=== PATIENT | male | born 1955 | race Caucasian/White ===

== ENCOUNTER 2016-11-12 13:18 | Observation (INO) ==
--- NOTE | 2016-11-12 13:34 | Emergency Department Note ---
Disposition Clinical Impression: Altered mental status Qualifiers: Altered mental status type: unspecified Qualified Code(s): R41.82 - Altered mental status, unspecified Disposition: Admitted As Inpatient Condition: Good Referrals: NONE,PCP [Non-Partnered Physician] - Forms: ED Satisfaction Letter Time of Disposition: 15:08 Altered Mental Status HPI - General Chief Complaint: ED Altered Mental Status Stated Complaint: AMS Time Seen by Provider: 11/12/16 13:26 Source: patient, EMS Mode of arrival: EMS Limitations: no limitations Nursing Notes Reviewed: Yes Vital Signs Reviewed: Yes - History of Present Illness HPI Narrative: 61-year-old male who was at home getting ready to go on vacation and called his confused and trouble remembering recent events. Patient's states that everything looked intact at home. The patient thinks he may have blacked out. Please having trouble with short-term memory when asked questions. 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 Constitutional: Denies: fever, chills, weakness, weight change Eyes: Denies: eye pain, eye discharge, vision change ENT ED: Denies: ear pain, throat pain, dental pain, hearing loss, epistaxis, congestion, dysphagia Cardiovascular: Denies: chest pain, palpitations, dyspnea on exertion, edema, syncope Respiratory: Denies: cough, dyspnea, wheezes, hemoptysis, stridor Gastrointestinal: Denies: abdominal pain, nausea, vomiting, diarrhea, constipation, hematemesis, melena, hematochezia Genitourinary: Denies: urgency, dysuria, frequency, hematuria Musculoskeletal: Denies: back pain, neck pain, arthralgia, myalgia Integumentary: Denies: rash, abrasion, lesions Neurological: Reports: other. Denies: headache, weakness, numbness, paresthesias, confusion, abnormal gait, vertigo Psychiatric: Denies: anxiety, depression, suicidal thoughts, homicidal thoughts , auditory hallucinations, visual hallucinations Endocrine: Denies: fatigue Hematological/Lymphatic: Denies: easy bleeding, easy bruising Allergic/Immunologic: Denies: facial swelling, urticaria Past Medical History - Past Medical History Medical history: Reports: cancer, hypertension Psychiatric history: Reports: no psych history - Social History Smoking Status: Never smoker Smokeless Tobacco Status: No Alcohol use: Reports: none Drug use: Reports: none Physical Exam - General Limitations: no limitations General appearance: alert, in no apparent distress - Head Head exam: atraumatic, normocephalic, normal inspection - Eye Eye exam: Present: normal appearance, PERRL, EOMI - ENT ENT exam: normal exam, normal oropharynx, mucous membranes moist - Neck Neck exam: Present: normal inspection, full ROM, trachea midline - Chest Chest inspection: Present: normal inspection, symmetric chest wall rise - Respiratory Respiratory exam: Present: normal lung sounds bilaterally - Cardiovascular Cardiovascular exam: Present: regular rate, normal rhythm, normal heart sounds - Abdominal Exam Abdominal exam: Present: soft, Non-Tender. Absent: tenderness, distention, guarding, rebound, rigidity - Extremities Exam Extremities exam: Present: normal inspection, full ROM. Absent: tenderness, pedal edema - Expanded Lower Extremity Exam Neurovascular/Tendon exam: Absent: motor deficit, sensory deficit, tendon deficit Gait: not tested/not observed - Back Exam Back exam: Present: normal inspection, full ROM. Absent: tenderness - Neurological Exam Neurological exam: Present: alert, oriented X3. Absent: motor sensory deficit - Psychiatric Psychiatric exam: Present: normal affect, normal mood - Skin Skin exam: Present: warm, dry, intact, normal color Course - Reevaluation(s) Reevaluation #1: 51-year-old who developed acute confusion and short-term memory loss. NIH stroke scale was [address] is negative. Differential diagnosis includes transient global amnesia, seizure. Time: 15:01 - Consultations Consultation #1: Discussed with Dr. Espitia, admit Time: 15:00 Consultation #2: Discussed with Dr.Li landis see and consult Time: 15:06 Vital Signs Temperature 97.1 F L 11/12/16 13:20 Pulse Rate 58 11/12/16 13:20 Respiratory Rate 16 11/12/16 13:20 Blood Pressure 144/107 11/12/16 13:20 O2 Sat by Pulse Oximetry 96 11/12/16 13:20 Temperature 97.1 F L 11/12/16 13:20 Pulse Rate 58 11/12/16 14:39 Respiratory Rate 16 11/12/16 14:39 Blood Pressure 149/98 11/12/16 14:39 O2 Sat by Pulse Oximetry 98 11/12/16 14:39 Oxygen Delivery Oxygen Delivery Room Air Altered Mental Status - Differential Diagnosis Likely: altered mental status - Lab Data Lab results reviewed: Yes I reviewed the patient's lab results. Result diagrams: 11/12/16 13:40 11/12/16 13:40 Lab Results 11/12/16 11/12/16 11/12/16 Range/Units 13:40 13:40 13:40 WBC 7.5 (4.3-11.1) K/mcL RBC 4.26 (4.19-5.50) M/mcL Hgb 12.9 (12.9-16.9) g/dL Hct 37.3 L (37.5-50.1) % MCV 87.6 (83.0-100.0) fL MCH 30.3 (28.0-33.3) pg MCHC 34.6 (31.6-35.5) g/dL RDW 12.4 (11.5-14.5) % Plt Count 169 (140-400) K/mcL MPV 11.0 (9.4-12.4) fL Immature Gran % 0.3 (0-4) % Seg Neutrophils % 81.3 % Lymphocytes % 10.6 % Monocytes % 6.4 % Eosinophils % 1.1 % Basophils % 0.3 % Neutrophils # 6.1 (1.6-8.9) K/mcL Lymphocytes # 0.8 (0.6-4.6) K/mcL Monocytes # 0.5 (0.0-1.3) K/mcL Eosinophils # 0.1 (0.0-0.6) K/mcL Basophils # 0.0 (0.0-0.2) K/mcL Immature Plt Fraction 7.2 H (1.1-6.1) % PT 10.8 (9.4-12.1) Seconds INR 1.0 APTT 27.7 (26.0-36.0) Seconds Sodium 133 L (136-145) mEq/L Potassium 3.9 (3.5-4.5) mEq/L Chloride 98 (98-109) mEq/L Carbon Dioxide 29 (19-29) mEq/L BUN 28 H (8-26) mg/dL Creatinine 0.96 (0.72-1.25) mg/dL Est GFR ( Amer) > 60 (> 60) Est GFR (Non-Af Amer) > 60 (> 60) BUN/Creatinine Ratio 29 H (6-26) Glucose 110 H (70-99) mg/dL Calculated Osmolality 282 (280-300) Calcium 9.8 (8.6-10.8) mg/dL Total Bilirubin 0.7 (0.2-1.2) mg/dL Direct Bilirubin 0.3 (0.0-0.5) mg/dL Indirect Bilirubin 0.4 (0.0-1.2) mg/dL AST 20 (5-34) Units/L ALT 13 (0-55) Units/L Alkaline Phosphatase 52 (38-126) Units/L Troponin I (0-0.03) ng/mL Serum Total Protein 6.0 (6.0-8.3) g/dL Albumin 3.7 (3.5-5.0) g/dL Globulin 2.3 L (2.4-3.5) g/dL Albumin/Globulin Ratio 1.6 (1.1-2.2) Urine Color (Yellow) Urine Clarity (Clear) Urine pH (5.0-8.0) pH Units Ur Specific [place] (1.010-1.025) Urine Protein (Neg-Trace) mg/dL Urine Glucose (UA) (Normal) mg/dL Urine Ketones (Negative) mg/dL Urine Blood (Negative) Urine Nitrite (Negative) Urine Bilirubin (Negative) Urine Urobilinogen (Normal) mg/dL Ur Leukocyte Esterase (Negative) Ur Culture Indicated? (NO) Urine Opiates Screen (Lfqlge=766) ng/mL Ur Barbiturates Screen (Xjfyfa=344) ng/mL Ur Phencyclidine Scrn (Cutoff=25) ng/mL Ur Amphetamines Screen (Hwyjlf=0880) ng/mL U Benzodiazepines Scrn (Dspdzg=397) ng/mL Urine Cocaine Screen (Cutoff= 300) ng/mL U Marijuana (THC) Screen (Cutoff = 50) ng/mL Ethyl Alcohol < 10 (0-10) mg/dL 11/12/16 11/12/16 11/12/16 Range/Units 13:40 13:56 13:59 WBC (4.3-11.1) K/mcL RBC (4.19-5.50) M/mcL Hgb (12.9-16.9) g/dL Hct (37.5-50.1) % MCV (83.0-100.0) fL MCH (28.0-33.3) pg MCHC (31.6-35.5) g/dL RDW (11.5-14.5) % Plt Count (140-400) K/mcL MPV (9.4-12.4) fL Immature Gran % (0-4) % Seg Neutrophils % % Lymphocytes % % Monocytes % % Eosinophils % % Basophils % % Neutrophils # (1.6-8.9) K/mcL Lymphocytes # (0.6-4.6) K/mcL Monocytes # (0.0-1.3) K/mcL Eosinophils # (0.0-0.6) K/mcL Basophils # (0.0-0.2) K/mcL Immature Plt Fraction (1.1-6.1) % PT (9.4-12.1) Seconds INR APTT (26.0-36.0) Seconds Sodium (136-145) mEq/L Potassium (3.5-4.5) mEq/L Chloride (98-109) mEq/L Carbon Dioxide (19-29) mEq/L BUN (8-26) mg/dL Creatinine (0.72-1.25) mg/dL Est GFR ( Amer) (> 60) Est GFR (Non-Af Amer) (> 60) BUN/Creatinine Ratio (6-26) Glucose (70-99) mg/dL Calculated Osmolality (280-300) Calcium (8.6-10.8) mg/dL Total Bilirubin (0.2-1.2) mg/dL Direct Bilirubin (0.0-0.5) mg/dL Indirect Bilirubin (0.0-1.2) mg/dL AST (5-34) Units/L ALT (0-55) Units/L Alkaline Phosphatase (38-126) Units/L Troponin I 0.01 (0-0.03) ng/mL Serum Total Protein (6.0-8.3) g/dL Albumin (3.5-5.0) g/dL Globulin (2.4-3.5) g/dL Albumin/Globulin Ratio (1.1-2.2) Urine Color Yellow (Yellow) Urine Clarity Clear (Clear) Urine pH 6.5 (5.0-8.0) pH Units Ur Specific [place] 1.021 (1.010-1.025) Urine Protein Negative (Neg-Trace) mg/dL Urine Glucose (UA) Normal (Normal) mg/dL Urine Ketones Negative (Negative) mg/dL Urine Blood Negative (Negative) Urine Nitrite Negative (Negative) Urine Bilirubin Negative (Negative) Urine Urobilinogen Normal (Normal) mg/dL Ur Leukocyte Esterase Negative (Negative) Ur Culture Indicated? NO (NO) Urine Opiates Screen Negative (Lykwpc=807) ng/mL Ur Barbiturates Screen Negative (Cttckf=515) ng/mL Ur Phencyclidine Scrn Negative (Cutoff=25) ng/mL Ur Amphetamines Screen Negative (Zcxejn=5711) ng/mL U Benzodiazepines Scrn Negative (Vlxbdv=709) ng/mL Urine Cocaine Screen Negative (Cutoff= 300) ng/mL U Marijuana (THC) Screen Negative (Cutoff = 50) ng/mL Ethyl Alcohol (0-10) mg/dL - Radiology Data Radiology results reviewed: Yes I reviewed the patient's radiology results. Chest X-Ray 11/12/16 13:27 IMPRESSION: 1. No active pulmonary disease. D/ / Jeff Riley MD / Jeff Riley MD Interpreting Provider: Jeff Riley MD Head CT 11/12/16 13:27 IMPRESSION: No acute intracranial abnormality. D/ / Keegan Valles MD / Keegan Valles MD Interpreting Provider: Keegan Valles MD - EKG Data EKG attestation: Yes I reviewed and interpreted this EKG. EKG shows normal: sinus rhythm Rate: bradycardia Rhythm: NSR Interpretation: no acute changes TPA Checklist - Eligibilty for IV tPA 1. LKW equal to or less than 4.5 hours be before treatment: Yes 2. Clinical diagnosis of ischemic stroke causing deficit: No - LKW: 3-4.5 hrs Add. Warnings/Precautions Patient/family understanding: The patient/family members have been counseled and understood the risk, benefit , and alternatives of treatment. NIH Stroke Scale - Level of Consciousness LOC: Alert - LOC Questions LOC Questions: Answers both correctly - LOC Commands LOC Commands: Performs both correctly - Best Gaze Best Gaze: Normal - Visual Visual: No visual loss - Facial Palsy Facial Palsy: Normal - Motor Arms Motor Arm-Left: No drift for 10 seconds Motor Arm-Right: No drift for 10 seconds - Motor Legs Motor Leg-Left: No drift for 5 seconds Motor Leg-Right: No drift for 5 seconds - Limb Ataxia Limb Ataxia: Normal, No Ataxia - Sensory Sensory: Normal - Best Language Best Language: No aphasia - Dysarthria Dysarthria: Normal - Extinction and Inattention Extinction and Inattention: Normal - NIHSS Total Score NIHSS Total Score: 0
[2016-11-12 13:47] LABS: Basophils % 0.3 %; Eosinophils # 0.1 K/mcL (0.0-0.6); Eosinophils % 1.1 %; Hematocrit 37.3 % (37.5-50.1); Hemoglobin 12.9 g/dL (12.9-16.9); Immature Granulocytes % 0.3 % (0-4); Immature Platelets 7.2 % (1.1-6.1); Lymphocytes # 0.8 K/mcL (0.6-4.6); Lymphocytes % 10.6 %; Mean Corpuscular HGB Conc 34.6 g/dL (31.6-35.5); Mean Corpuscular Hemoglobin 30.3 pg (28.0-33.3); Mean Corpuscular Volume 87.6 fL (83.0-100.0); Monocytes # 0.5 K/mcL (0.0-1.3); Monocytes % 6.4 %; Neutrophils # 6.1 K/mcL (1.6-8.9); Platelet Count 169 K/mcL (140-400); Red Blood Count 4.26 M/mcL (4.19-5.50); Red Cell Distribution Width 12.4 % (11.5-14.5); Segmented Neutrophils % 81.3 %
[2016-11-12 13:52] LABS: Prothrombin Time 10.8 Seconds (9.4-12.1)
[2016-11-12 13:54] LABS: Activated Partial Thrombo Time 27.7 Seconds (26.0-36.0)
[2016-11-12 14:01] LABS: Alanine Aminotransferase 13 Units/L (0-55); Albumin 3.7 g/dL (3.5-5.0); Albumin/Globulin Ratio 1.6 (1.1-2.2); Alkaline Phosphatase 52 Units/L (38-126); Aspartate Amino Transferase 20 Units/L (5-34); BUN/Creatinine Ratio 29 (6-26); Bilirubin,Direct 0.3 mg/dL (0.0-0.5); Bilirubin,Indirect 0.4 mg/dL (0.0-1.2); Bilirubin,Total 0.7 mg/dL (0.2-1.2); Blood Urea Nitrogen 28 mg/dL (8-26); Calcium 9.8 mg/dL (8.6-10.8); Carbon Dioxide 29 mEq/L (19-29); Chloride 98 mEq/L (98-109); Globulin 2.3 g/dL (2.4-3.5); Glucose 110 mg/dL (70-99); Osmolality,Calculated 282 (280-300); Potassium 3.9 mEq/L (3.5-4.5); Sodium 133 mEq/L (136-145); eGFR For African Americans > 60 (> 60); eGFR For Non-African Americans > 60 (> 60)
[2016-11-12 14:02] LABS: Ethanol < 10 mg/dL (0-10)
[2016-11-12 14:07] LABS: Bilirubin,Urine Negative (Negative); Blood,Urine Negative (Negative); Color,Urine Yellow (Yellow); Glucose,Urine (UA) Normal (Normal); Ketones,Urine Negative (Negative); Leukocyte Esterase,Urine Negative (Negative); Nitrite,Urine Negative (Negative); PH,Urine 6.5 pH Units (5.0-8.0); Protein,Urine Negative (Neg-Trace); Specific Gravity,Urine 1.021 (1.010-1.025); Urobilinogen,Urine Normal (Normal)
[2016-11-12] MEDS ORDERED: Ondansetron 4 MG/2 ML VIAL IVP ONE (14:09)
[2016-11-12 14:11] LABS: Amphetamine Screen,Urine Negative ng/mL (Cutoff=1000); Barbiturate Screen,Urine Negative ng/mL (Cutoff=200); Benzodiazepines Screen,Urine Negative ng/mL (Cutoff=200); Cannabinoid Screen,Urine Negative ng/mL (Cutoff = 50); Cocaine Screen,Urine Negative ng/mL (Cutoff= 300); Opiate Screen,Urine Negative ng/mL (Cutoff=300); Phencyclidine Screen,Urine Negative ng/mL (Cutoff=25)
[2016-11-12 14:11] LABS: Clarity,Urine Clear (Clear)
[2016-11-12] MEDS ORDERED: Naloxone 0.4 MG/ML INJ IVP PRN (17:47)
[2016-11-12] MEDS ORDERED: Acetaminophen 325 MG TABLET PO PRN (17:47)
--- NOTE | 2016-11-12 17:55 | Internal Med History&Physical ---
Date of Encounter: 11/12/16 Time of Encounter: 17:54 Assessment and Plan (1) TGA (transient global amnesia) Current visit: Yes Status: Suspected Acute episode of altered mental status with short-term memory loss. Highly suspicious for transient global amnesia. Denies any prior history of similar events. ED CT of head negative for acute infarct, additionally, no chronic ischemia noted. Has gradually improved throughout the day back to baseline. Continue to monitor. Consult neuro MRI with contrast of head and BRAIN MRA with contrast of head and neck Continuous telemetry Continuous SPO2 Oxygen therapy when necessary titrate to maintain SPO2 greater than 92% (2) Seizure Current visit: Yes Status: Suspected Acute alterations in mental status with transient memory loss. Patient reports difficulty with short-term memory which begins morning. CT of head negative for acute infarct, additionally, no chronic ischemia noted Consult neuro MRI with contrast of head and BRAIN MRA with contrast of head and neck Continuous telemetry Continuous SPO2 Oxygen therapy when necessary titrate to maintain SPO2 greater than 92% (3) Altered mental status Current visit: Yes Status: Acute She does not alter mental status with acute short-term memory loss which has resolved at this time. He is being admitted for further workup and evaluation. CT of the head negative for any ischemic changes acute or chronic. Consult neuro MRI with contrast of head and BRAIN MRA with contrast of head and neck Continuous telemetry Continuous SPO2 Oxygen therapy when necessary titrate to maintain SPO2 greater than 92% Qualifiers: Altered mental status type: unspecified Qualified Code(s): R41.82 - Altered mental status, unspecified (4) DVT prophylaxis Current visit: Yes Status: Acute Due to hospitalization and immobilization the patient is a risk for DVT. He was placed on Lovenox 40 mg subcutaneous daily. Internal Medicine - H&P: HPI Chief complaint: Memory loss, AMS changes Admitted From: Home Plans for Post Hospital Care: Home History of present illness: Mr. Vega is a 61 year old male PMH of HTN comes to the hospital for transient memory loss. Reports that he was working on his car earlier this morning and had an acute episode of not feeling well, he vaguely remembers calling his son but remembers nothing else until the hospital from that point. He reports blacking out and having no memory of this mornings events. He denies every having a history of these types of events. Denies any CP, syncope, arrhythmias, palpitations, or head trauma. Currently asymptomatic, admiting overnight for observation. Currently mental status back to baseline. Will obtain MRI head/ brain, MRA head/neck. Neurology consultation requested. Past Med Surg Social Fam HX - Past Medical History Medical history: cancer, hypertension Psychiatric history: no psych history - Past Surgical History Surgical History: prostatectomy - Social History Smoking Status: Never smoker Smokeless Tobacco Status: No Alcohol use: none Drug use: none - Family History Mother Hx Family Cardiac Disorders: Yes (HTN) Hx Family Neurologic Disorders: Yes (CVA) Father Hx Family Cardiac Disorders: Yes (HTN) Hx Family Cancer: Yes (prostate) Internal Medicine - H&P: Meds Lisinopril [Lisinopril] 2.5 mg PO DAILY 09/11/15 [History] 3 Allergy/AdvReac Type Severity Reaction Status Date / Time No Known Allergies Allergy Verified 02/22/15 12:57 All Systems PM: A 10-system review of systems was performed and is negative for pertinent findings except as documented above in the HPI. - Constitutional Constitutional: no chills, no fever(s), no night sweats - EENT Eyes: no change in vision, no discharge, no pain, no photophobia Ears: no ear discharge, no ear pain, no tinnitus Nose, mouth and throat: no dysphagia, no nasal discharge, no neck pain, no sore throat - Cardiovascular Cardiovascular ROS IM: no chest pain, no diaphoresis, no dyspnea, no lightheadedness, no palpitations, no syncope - Respiratory Respiratory: no cough, no dyspnea, no wheezing, no excessive phlegm production - Gastrointestinal Gastrointestinal: no abdominal pain, no diarrhea, no hematemesis, no hematochezia, no melena, no nausea, no vomiting - Musculoskeletal Musculoskeletal ROS IM: no numbness, no tingling - Integumentary Integumentary IM: no rash, no unusual bruising - Neurological Neurological ROS: headache(s), memory loss, no confusion, no convulsions, no disequilibrium, no dizziness, no focal weakness, no frequent falls, no lack of coordination, no loss of vision, no numbness, no tingling, no tremor(s) - Psychiatric Psychiatric: difficulty concentrating (Initially upon arrival to ED but it has since improved), memory loss (which began this am but has since improved), no anxiety, no behavioral changes, no confusion, no hallucinations - Hematologic/Lymphatic Hematologic/Lymphatic: no easy bruising - Constitutional Vitals: Temp Pulse Resp BP Pulse Ox 98.0 F 57 17 139/91 97 11/12/16 16:59 11/12/16 16:59 11/12/16 16:59 11/12/16 16:59 11/12/16 16:59 General appearance: Present: cooperative, A&O X 3, no acute distress - Head Head exam: Present: atraumatic, normocephalic - Eye Eye exam: Present: EOMI, PERRL, conjuntiva pink, sclera anicteric. Absent: nystagmus Pupils: Present: PERRL - Neck Neck exam general surgery: Present: supple, trachea midline. Absent: lymphadenopathy - Respiratory Respiratory exam: Present: CTAB. Absent: accessory muscle use, rales, rhonchi, wheezes - Cardiovascular Cardiovascular exam: Present: RRR, +S1, +S2. Absent: diastolic murmur, gallop, rubs, systolic murmur - GI/Abdominal GI/Abdominal exam: Present: normal bowel sounds, soft, no peritoneal signs. Absent: distended, tenderness - Extremities Exam Extremities exam: Present: warm, radial pulses palpable and symmetrical. Absent : calf tenderness, cyanotic, pedal edema - Neurological Exam Neurological exam: Present: alert, CN II-XII intact, oriented X3, reflexes normal, no focal deficits, strengths equal and symetr throughout. Absent: altered, motor sensory deficit, pronater drift, facial droop, speech deficit - Expanded Neurological Exam Neurological exam expanded: Present: memory loss-recent event (However, no memory loss noted upon exam). Absent: ataxia, expressive aphasia, inattentive Patient oriented to: Present: person, place, time Speech: Absent: expressive aphasia, garbled, receptive aphasia, slurred Cranial Nerves: EOM's intact PM: Normal, gag reflex PM: Normal, nystagmus PM: Normal, tongue deviation PM: Normal Cerebellar function: finger to nose: Normal, heel to santana: Normal Upper motor neuron: Babinski sign: Normal, Dinesh neglect: Normal, pronator drift : Normal, sensory extinction: Normal Neuro motor strength exam: LUE: 5, RUE: 5, LLE: 5, RLE: 5 Coma Scale Eye Opening: Spontaneous Coma Scale Motor Response: Obeys Commands Coma Scale Verbal Response: Oriented Coma Scale Total: 15 - Psychiatric Psychiatric exam: Present: normal affect, normal mood. Absent: agitated, anxious - Skin Skin exam: Present: dry, intact Internal Med - H&P Results - Labs CBC & Chem 7: 11/12/16 13:40 11/12/16 13:40 - Diagnostic Studies Chest x-ray Additional comments: No acute pulmonary process CT scan - head Additional comments: No acute intracranial abnormalities
--- NOTE | 2016-11-12 18:00 | Event Note ---
Date of Encounter: 11/12/16 Time of Encounter: 17:56 Patient is a 61y/o male with PMH of HTN comes to the hospital for evaluation of transient period of memory loss. Patient is independently seen and examined at bedside. Currently resting comfortably in bed. States he was working on his care earlier this morning and had an acute episode of not feeling well and after that he remembers coming the hospital. He reports of blanking out and having no recollection of what happened earlier this morning. Denies such episodes in the past. Denies any syncope or trauma. Currently asymptomatic. Will admit overnight for observation. Currently mental status back to baseline. concern for Transient global amnesia. Will obtain MRI head/brain, MRA head/ neck. Neurology consultation requested. Case discussed with NATHANIEL Loyola, I agree with his documented findings, assessment, and plan.
--- NOTE | 2016-11-12 19:01 | Neurology - Consult Note ---
Date of Encounter: 11/12/16 Time of Encounter: 18:56 Assessment and Plan (1) Altered mental status Current Visit: Yes Status: Acute differential diagnosis, posterior circulation TIA, TGA and seizure with postictal confusion. Agree with MRI of brain, MRA of brain and neck Echocardiography, EEG in AM. Start Aspirin 81mg daily. Check lipid panel and statin therapy if indicated. Qualifiers: Altered mental status type: unspecified Qualified Code(s): R41.82 - Altered mental status, unspecified History of Present Illness Chief complaint: memory loss and confusion HPI: Mr. Vega is a 61 year old male with PMH significant for hypoglycemia when young and HTN who developed an episode of confusion and memory loss. Patient was working on his car, changing tires to prepare for a trip and he apparently passed out. He tried to call his , who talked to him over the phone and noticed that he was confused and had short term memory loss and did not know what was going on. She kept talking to him and finally came back home and he was still having issues with the memory but was able to talk and walk and with no focal neurological deficits. By the time he arrived ER, he has improved significantly. BP was elevated. states that the patient has history of spells of hypoglycemia when he was younger and that he has to take frequent meals. Since he adapted to this lifestyle he no longer has hypoglycemia. No history of seizure in the past. No similar episodes in the past Past Med Surg Social Fam HX - Past Medical History Medical history: cancer, hypertension Psychiatric history: no psych history - Past Surgical History Surgical History: prostatectomy - Social History Smoking Status: Never smoker Smokeless Tobacco Status: No Alcohol use: none Drug use: none - Family History Mother Hx Family Cardiac Disorders: Yes (HTN) Hx Family Neurologic Disorders: Yes (CVA) Father Hx Family Cardiac Disorders: Yes (HTN) Hx Family Cancer: Yes (prostate) Medications and Allergies Lisinopril [Lisinopril] 2.5 mg PO DAILY 09/11/15 [History] 3 Allergy/AdvReac Type Severity Reaction Status Date / Time No Known Allergies Allergy Verified 02/22/15 12:57 All Systems: A 10-system review of systems was performed and is negative for pertinent findings except as documented above in the HPI. Physical Examination - Vital Signs Vital Signs: Initial Vital Signs Temp Pulse Resp BP Pulse Ox 97.1 F L 58 16 144/107 96 11/12/16 13:20 11/12/16 13:20 11/12/16 13:20 11/12/16 13:20 11/12/16 13:20 - Neurologic Detailed motor examination: full strength in all major muscle groups Motor examination - right side: 07/25: deltoids, biceps, triceps, wrist flexion, wrist extension, director of casework, hip flexors, tibialis Anterior, quadriceps, toe extension (EHL), plantarflexion Motor examination - left side: 07/25: deltoids, biceps, triceps, wrist flexion, wrist extension, hip flexors, director of casework, quadriceps, tibialis Anterior, toe extension (EHL), plantarflexion Reflexes: Biceps: 1+, Triceps: 1+, Brachioradialis: 1+, Patella: 1+, Achilles: 1 + Mental Status Examination: awake, alert, oriented to person, oriented to place, oriented to time, follows commands appropriately, answers questions appropriately, no agnosia, no aphasia, no aproxia Cranial nerve examination: PERRL, EOMI, visual shannon intact, corneal reflexes brisk symmetrically, sensory to face intact, mastication intact, no facial asymmetry is present, no dysarthria, hearing is intact symmetrically, soft palate elevates bilaterally upon phonation, gag reflex intact, flexes SCM and trapezius muscles symmetrically with full power, tongue protrudes midline, no atrophy or facial fasiculations present Cerebellar examination: no dysmetria, performs finger to nose and heel to santana symmetrically without ataxia, no gait ataxia, no truncal ataxia, no difficulty with rapid alternating movements Results - Laboratory Findings CBC and BMP: 11/12/16 13:40 11/12/16 13:40 Abnormal lab findings: Abnormal lab results Hct 37.3 % (37.5-50.1) L 11/12/16 13:40 Immature Plt Fraction 7.2 % (1.1-6.1) H 11/12/16 13:40 Sodium 133 mEq/L (136-145) L 11/12/16 13:40 BUN 28 mg/dL (8-26) H 11/12/16 13:40 BUN/Creatinine Ratio 29 (6-26) H 11/12/16 13:40 Glucose 110 mg/dL (70-99) H 11/12/16 13:40 POC Glucose 108 (58-89) H 11/12/16 17:52 Globulin 2.3 g/dL (2.4-3.5) L 11/12/16 13:40 Consult Discharge Plan - Plan Referrals: Jo Rodriges MD [Primary Care Provider] -
[2016-11-13 06:06] LABS: Basophils % 0.5 %; Eosinophils # 0.1 K/mcL (0.0-0.6); Eosinophils % 2.7 %; Hematocrit 38.8 % (37.5-50.1); Hemoglobin 13.7 g/dL (12.9-16.9); Lymphocytes % 24.6 %; Mean Corpuscular HGB Conc 35.3 g/dL (31.6-35.5); Mean Corpuscular Hemoglobin 31.1 pg (28.0-33.3); Mean Platelet Volume 11.5 fL (9.4-12.4); Monocytes # 0.5 K/mcL (0.0-1.3); Monocytes % 11.6 %; Neutrophils # 2.5 K/mcL (1.6-8.9); Platelet Count 173 K/mcL (140-400); Red Blood Count 4.41 M/mcL (4.19-5.50); Red Cell Distribution Width 12.7 % (11.5-14.5); Segmented Neutrophils % 60.6 %
[2016-11-13 06:33] LABS: Alanine Aminotransferase 14 Units/L (0-55); Albumin 3.6 g/dL (3.5-5.0); Albumin/Globulin Ratio 1.5 (1.1-2.2); Alkaline Phosphatase 47 Units/L (38-126); Aspartate Amino Transferase 20 Units/L (5-34); BUN/Creatinine Ratio 19 (6-26); Blood Urea Nitrogen 22 mg/dL (8-26); Calcium 9.3 mg/dL (8.6-10.8); Carbon Dioxide 29 mEq/L (19-29); Chloride 103 mEq/L (98-109); Globulin 2.4 g/dL (2.4-3.5); Glucose 94 mg/dL (70-99); Osmolality,Calculated 297 (280-300); Potassium 4.2 mEq/L (3.5-4.5); eGFR For African Americans > 60 (> 60); eGFR For Non-African Americans > 60 (> 60)
[2016-11-13 06:37] LABS: Sodium 142 mEq/L (136-145)
[2016-11-13] MEDS ORDERED: *HR* Enoxaparin 40 MG/0.4 ML SYRINGE SQ SCH (07:00)
[2016-11-13 07:17] VITALS: BP 127/83
[2016-11-13] MEDS ORDERED: Aspirin 81 MG TAB.CHEW PO SCH (09:00)
--- NOTE | 2016-11-13 10:39 | Discharge Summary ---
Date of Encounter: 11/13/16 Time of Encounter: 10:30 - Discharge Diagnosis (1) TIA (transient ischemic attack) Priority: Primary Status: Acute Qualifiers: Qualified Code(s): G45.9 - Transient cerebral ischemic attack, unspecified (2) Altered mental status Priority: Primary Status: Resolved Comments: Could be TIA Qualifiers: Altered mental status type: unspecified Qualified Code(s): R41.82 - Altered mental status, unspecified (3) TGA (transient global amnesia) Priority: Primary Status: Resolved Comments: TIA vs TGA - Discharge Medications Prescriptions: Aspirin 81 mg PO DAILY #30 Home Medications: Lisinopril 2.5 mg PO DAILY 09/11/15 [History] Aspirin 81 mg PO DAILY #30 11/13/16 [Rx] Allergies/Adverse Reactions: 3 Allergy/AdvReac Type Severity Reaction Status Date / Time No Known Allergies Allergy Verified 02/22/15 12:57 Procedures/tests Complete & Pending: Procedures Performed prior 72 hours Category Date Time Status MR angio head wo con [MR] Routine MRI 11/12/16 17:44 Completed MR angio neck wo/w con [MR] Routine MRI 11/12/16 17:44 Completed MR head/brain wo/w con [MR] Routine MRI 11/12/16 17:44 Completed Date of admission: 11/12/16 15:27 Primary care physician: Jo Rodriges MD - Patient Status Disposition: Home, Self-Care Condition: Good Overall status at discharge: patient is back to baseline - Discharge Instructions Instructions: Aspirin (By mouth), Altered Mental Status (GEN) Follow Up With: Jo Rodriges MD [Primary Care Provider] - - Diet and Activity Activity: increase activity as tolerated Diet: low salt diet Hospital course: Mr. Vega is a 61 year old male PMH of HTN comes to the hospital for transient memory loss. Reports that he was working on his car earlier this morning and had an acute episode of not feeling well, he vaguely remembers calling his son but remembers nothing else until the hospital from that point. He reports blacking out and having no memory of this mornings events. He denies every having a history of these types of events. Denies any CP, syncope, arrhythmias, palpitations, or head trauma. Pt was admitted here for further work up. He was placed on desk monitor. Checked his [facility] MRI / MRA - which were negative for any acute pathology, no acute infraction noticed. Pt was evaluated by Neurologist, who recommend EEG which came back as negative for any seizure activity. Pt denied any more memory problems He is alert, awake and oriented x 3. Will d/c him home in stable condition today. - Time Spent with Patient Total time spent providing and/or coordinating discharge services: - Constitutional Vitals: Temp Pulse Resp BP Pulse Ox 97.9 F 61 18 127/83 95 11/13/16 07:13 11/13/16 07:13 11/13/16 07:13 11/13/16 07:13 11/13/16 07:13 General appearance: Present: cooperative, A&O X 3, no acute distress - Head Head exam: Present: atraumatic, normal inspection - Respiratory Respiratory exam: Present: CTAB. Absent: accessory muscle use, rales, rhonchi, wheezes - Cardiovascular Cardiovascular exam: Present: RRR, +S1, +S2. Absent: diastolic murmur, gallop, rubs, systolic murmur - GI/Abdominal GI/Abdominal exam: Present: normal bowel sounds, soft, no peritoneal signs. Absent: distended, tenderness - Extremities Exam Extremities exam: Absent: calf tenderness, pedal edema, tenderness - Neurological Exam Neurological exam: Present: CN II-XII intact, oriented X3, no focal deficits. Absent: pronater drift, facial droop, speech deficit - Psychiatric Psychiatric exam: Present: normal affect, normal mood
--- NOTE | 2016-11-13 11:07 | EEG/EMG/Oth Biometrics Report ---
EEG Procedure Report Date of procedure: 11/13/16 EEG Procedure: Routine EEG Procedure Note: This EEG was acquired with standard international 1020 system with EKG recording. The background EEG activity was characterized by the presence of mixture of alpha, theta and delta activity with best frequency of 11 Hz. The background activity was reactive to eye openings. Sleep stages were not identified during this tracing. Drowsiness was characterized by drop off of posterior dominant Alpha rhythm. There are no electrographic seizures identified during this tracing. There are no epileptiform discharges and focal slowing noted during this recording. Photic stimulation produced and hyperventilation produced no abnormalities. EKG tracing showed no significant cardiac dysrhythmia. Impression: This is essentially a normal awake and drowsy EEG. Clinical Correlation: Normal EEGs, however, do not exclude epilepsy. Clinical correlation is advised.
--- NOTE | 2016-11-13 18:14 | Electrocardiograph Report ---
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
== END 2016-11-13 11:05 | disposition home or self-care (01) ==
LOC: EMEROO 13:18 → 3BNU 13:18
PROVIDERS: ADMIT Internal Medicine; ATTEND Nurse Practitioner Family